=== PATIENT | female | born 1935 | race Caucasian/White ===

== ENCOUNTER 2016-10-12 08:36 | Emergency (ER) | payer MEDICARE, OTHER ==
[2016-10-12] MEDS ORDERED: Acetaminophen/Codeine 30-300mg Tablet ONE (09:32)
--- NOTE | 2016-10-12 20:41 | CT ---
PRELIMINARY REPORT/[facility]/EMERGENCY AFTER HOURS PROCEDURE: EXAM: CT Maxillofacial Without Intravenous Contrast CLINICAL HISTORY: 81 years old, female; Injury or trauma; Fall; Initial encounter; Blunt trauma (contusions or hematom as); Orbit/periorbital; Right; Injury date: 10-10-16; Injury details: Fell/ contusion under r eye TECHNIQUE: Axial computed tomography images of the face without intravenous contrast. This CT exam was performe d using one or more of the following dose reduction techniques: automated exposure control, adjustme nt of the mA and/or kV according to patient size, and/or use of iterative reconstruction technique. Coronal and sagittal reformatted images were created and reviewed. EXAM DATE/TIME: 10/12/2016 9:05 AM COMPARISON: No relevant prior studies available. FINDINGS: Bones/joints: No acute fracture. Soft tissues: Mild soft tissue swelling over the right face. Orbits: Unremarkable. Sinuses: Air bubbles in the sphenoid sinus suggesting acute sinus disease. Mild mucoperiosteal thick ening of the paranasal sinuses. Right nasoantral window. IMPRESSION: 1. Mild soft tissue swelling over the right face. No fractures identified. 2. Air bubbles in the sphenoid sinus suggesting acute sinus disease. Thank you for allowing us to participate in the care of your patient. Dictated and Authenticated by: Nathaly Alarcon MD 10/12/2016 10:30 AM Central Time ([place] \T\ [place]) FINAL REPORT CT OF THE FACIAL BONES: Date: 10-12-16 Technique: Spiral CT of the face was performed for evaluation following trauma. Axial slices were ac quired and then coronal and sagittal reconstructions were done. FINDINGS: No acute facial fractures were seen. The orbital rims, maxilla, zygomatic arches and mandible all ap peared intact. There are no airfluid levels in the paranasal sinuses. There is opacification of one of the right posterior ethmoid air cells and in the sphenoid sinus there is a suggestion of a few ti ny areas of mucosal thickening, possibly even with some air bubbles in them. This raises the questio n of acute sinus disease. There is no sign of a basilar skull fracture. The retroorbital areas were unremarkable. Some mild soft tissue swelling is seen over the right cheek. The underlying bone appea rs intact. IMPRESSION: 1. No acute traumatic bony findings. 2. Evidence of sinus disease as described. 3. Soft tissue swelling, right cheek, as noted. RERORT IN AGREEMENT WITH PRELIMINARY READING BY CAREY. POS: HOME
--- NOTE | 2016-10-12 20:43 | RAD ---
RIGHT SHOULDER THREE VIEWS: Date: 10-12-16 Comparison: 11-29-14 chest film which shows the right shoulder. FINDINGS: There is a fracture through at least the greater tubercle. The humeral head seems subluxed anteriorl y very slightly but probably not frankly dislocated. The fracture is somewhat complex therefore I fuchs spect that there are additional fracture lines present, probably in the vicinity of the humeral neck . Further studies will be needed to sufficiently show and categorize them. The AC joint is not wide. The visible adjacent ribs appeared intact. IMPRESSION: Fractures around the humeral head and greater tubercle as described. POS: HOME
--- NOTE | 2016-10-12 20:49 | CT ---
PRELIMINARY REPORT/[facility]/EMERGENCY AFTER HOURS PROCEDURE: EXAM: CT Head Without Intravenous Contrast CLINICAL HISTORY: 81 years old, female; Injury or trauma; Fall; Initial encounter; Concussion / head injury; Injury da te: 10-10-16; Injury details: Fell/ contusion under r eye TECHNIQUE: Axial computed tomography images of the head/brain without intravenous contrast. This CT exam was pe rformed using one or more of the following dose reduction techniques: automated exposure control, ad justment of the mA and/or kV according to patient size, and/or use of iterative reconstruction technique. EXAM DATE/TIME: 10/12/2016 8:59 AM COMPARISON: No relevant prior studies available. FINDINGS: Brain: Prominent sulci. Patchy hypodensity of the cerebral white matter which are nonspecific but li maurice secondary to microangiopathic changes. No hemorrhage. No edema. Ventricles: The ventricles are prominent secondary to diffuse volume loss/atrophy. Bones/joints: Unremarkable. No acute fracture. Soft tissues: Unremarkable. Sinuses: Mild mucoperiosteal thickening of the paranasal sinuses. Mastoid air cells: Unremarkable as visualized. No mastoid effusion. IMPRESSION: Chronic age related changes but no evidence of acute intracranial pathology. Remainder of findings as described above. Thank you for allowing us to participate in the care of your patient. Dictated and Authenticated by: Nathaly Alarcon MD 10/12/2016 10:08 AM Central Time ([place] \T\ [place]) FINAL REPORT CT BRAIN WITHOUT CONTRAST: Date: 10-12-16 Technique: A noncontrast CT was done following trauma. FINDINGS: The ventricles are normal in size with no shift. No intracranial bleeding or extraaxial hematoma was seen. There is no sign of mass, edema, or stroke. There is some minimal hyperlucency in the deep wh ite matter, typical of chronic ischemic changes. The visible paranasal sinuses are clear, although t here is a little mucosal thickening in the ethmoid sinuses, especially on the right. The mastoid air cells are clear. IMPRESSION: No acute intracranial findings. Report in agreement with preliminary reading by CAREY. POS: HOME
== END 2016-10-12 10:17 | disposition home or self-care (01) ==
LOC: BURERS 08:36
DX: S42.251A Displaced fracture of greater tuberosity of right humerus, initial encounter for closed fracture (principal); S05.11XA Contusion of eyeball and orbital tissues, right eye, initial encounter; K21.9 Gastro-esophageal reflux disease without esophagitis; E78.5 Hyperlipidemia, unspecified; I10 Essential (primary) hypertension; Z79.82 Long term (current) use of aspirin; Z79.899 Other long term (current) drug therapy; W01.198A Fall on same level from slipping, tripping and stumbling with subsequent striking against other object, initial encounter
CPT/HCPCS: 70450; 70486

== ENCOUNTER 2016-12-22 13:14 | Outpatient (CLI) | payer MEDICARE, OTHER ==
[2016-12-22 13:46] LABS: ALT (SGPT) 20 U/L (8-55); AST (SGOT) 23 U/L (5-34); Albumin 4.1 g/dL (3.4-4.8); Alkaline Phosphatase 51 U/L (40-150); Anion Gap 14 mmol/L (10-20); BUN (Urea Nitrogen) 34 mg/dL (9.8-20.1); Bilirubin, Total 0.6 mg/dL (0.2-1.2); Calc. Creatinine Clearance 0 mL/min (70-130); Calcium 9.4 mg/dL (7.8-10.44); Carbon Dioxide 25 mmol/L (23-31); Cardiac Risk 2.9 (Less than 4.5); Chloride 108 mmol/L (98-107); Cholesterol 121 mg/dl (< 200 Desired); Estimated GFR-MDRD 39; Globulin 2.9 g/dL (2.4-3.5); Glucose 96 mg/dL (83-110); HDL Cholesterol 42 mg/dL (>60 Neg Risk); LDL Cholesterol, Calculated 65 mg/dL; Potassium 4.3 mmol/L (3.5-5.1); Sodium 143 mmol/L (136-145); Triglycerides 70 mg/dL (Less than 150)
[2016-12-22 13:49] LABS: #Basophils 0.1 thou/uL (0.0-0.2); #Eosinphils 0.5 thou/uL (0.0-0.7); #Lymphocytes 2.1 thou/uL (1.20-3.40); #Monocytes 0.6 thou/uL (0.11-0.59); #Neutrophils 4.9 thou/uL (1.40-6.50); %Basophils 0.8 % (0.0-1.0); %Eosinophils 6.3 % (0.0-10.0); %Lymphocytes 25.7 % (21.0-51.0); %Monocytes 7.3 % (0.0-10.0); %Neutrophils 59.9 % (42.0-75.0); Hemoglobin 11.6 g/dL (12.0-16.0); Mean Corpuscular HGB CONC 32.5 g/dL (32.0-36.0); Mean Corpuscular Hemoglobin 29.9 pg (27.0-31.0); Mean Corpuscular Volume 92.2 fl (81.0-99.0); Mean Platelet Volume 5.6 fL (7.4-10.4); Platelet Count 225 thou/uL (130-400); RBC Distribution Width 12.7 % (11.5-14.5); Red Blood Cell (RBC) Count 3.89 mill/uL (4.20-5.40); White Blood Cell (WBC) Count 8.1 thou/uL (4.8-10.8)
== END 2016-12-22 13:15 | disposition home or self-care (01) ==
LOC: HPCALD 13:14
PROVIDERS: ATTEND Family Medicine
DX: E78.5 Hyperlipidemia, unspecified (principal); I10 Essential (primary) hypertension
CPT/HCPCS: 36415; 80053; 80061; 85025

== ENCOUNTER 2016-12-24 14:46 | Outpatient (CLI) | payer MEDICARE, OTHER ==
--- NOTE | 2016-12-24 20:44 | RAD ---
THORACOLUMBAR SPINE TWO VIEWS: 12/24/16 Comparison is made with the prior study of 04/18/11. A T9 compression fracture is present as before, but it has lost more height anteriorly. The T10 comp ression is about the same as before. There is a mild compression of T11 and T12. The L1 compression seen previously has compressed slightly more. The L3 compression is about the same. Anterolisthesis of L4 on L5 is similar as well. There is some mild scoliosis of the thoracolumbar spine. IMPRESSION: 1. Increased compressions of particularly T9 and L1 since the prior exam in 2011. 2. Mild compressions of T10, T11, and T12. 3. Other findings as listed above. COMMENT: Overall the findings are similar but those vertebrae that were significantly compressed before are m uch more so. POS: HOME
== END 2016-12-24 14:47 | disposition home or self-care (01) ==
LOC: BURRAD 14:46
PROVIDERS: ATTEND Family Medicine
DX: M54.5 Low back pain (principal)
CPT/HCPCS: 72080

== ENCOUNTER 2019-02-23 01:09 | Emergency (ER) | payer MEDICARE, OTHER ==
[2019-02-23] MEDS ORDERED: Ondansetron ODT 4 MG TAB ONE (01:44)
== END 2019-02-23 02:10 | disposition home or self-care (01) ==
LOC: BURERS 01:09
DX: I83.892 Varicose veins of left lower extremity with other complications (principal); I10 Essential (primary) hypertension; I48.91 Unspecified atrial fibrillation; E78.5 Hyperlipidemia, unspecified; I25.10 Atherosclerotic heart disease of native coronary artery without angina pectoris; Z79.899 Other long term (current) drug therapy
CPT/HCPCS: 99283; Q0162

== ENCOUNTER 2019-02-28 12:24 | Outpatient (CLI) | payer MEDICARE, OTHER ==
--- NOTE | 2019-02-28 18:01 | RAD ---
RIGHT HIP TWO VIEWS: 02/28/2019 FINDINGS: No fracture, dislocation or joint space narrowing is seen. Degenerative changes are present but very minimal. The adjacent pubic ring appears intact. IMPRESSION: No acute bony findings. POS: HOME
--- NOTE | 2019-02-28 18:06 | RAD ---
LUMBAR SPINE THREE VIEWS: 02/28/2019 COMPARISON: Prior study of 12/24/2016. FINDINGS: There have been a few changes in the interval. Prominent anterior compression fractures of the T9 and L1 vertebral bodies are present, as before. Th e degree of compression is about the same. Lesser compressions of T6 as well as T11 and T12 are nearl y the same also. There is some slight downsloping of the superior endplate of L2 and scalloping of th e superior endplate of L3. Both were present to at least some degree before. Grade 1 spondylolisthesi s of L4 on L5 is present and unchanged. Also noted is a mild degree of an S-shaped thoracolumbar scoliosis. The SI joints show very slight sc lerotic change but were generally unremarkable for age. IMPRESSION: Osteoporosis with prominent anterior compressions of T9 and L1, just as before. Other findings listed above. Overall, any changes over the last two or so years have been slight. POS: HOME
== END 2019-02-28 12:25 | disposition home or self-care (01) ==
LOC: BURRAD 12:24
PROVIDERS: ATTEND Family Medicine
DX: M25.551 Pain in right hip (principal); M54.5 Low back pain; M81.0 Age-related osteoporosis without current pathological fracture
CPT/HCPCS: 72100

== ENCOUNTER 2019-11-07 08:49 | Emergency (ER) | payer MEDICARE, OTHER ==
[2019-11-07 09:48] LABS: #Basophils 0.1 thou/uL (0.0-0.2); #Lymphocytes 0.5 thou/uL (1.20-3.40); #Monocytes 0.6 thou/uL (0.11-0.59); #Neutrophils 9.8 thou/uL (1.40-6.50); %Basophils 0.5 % (0.0-1.0); %Eosinophils 0.1 % (0.0-10.0); %Lymphocytes 4.4 % (21.0-51.0); %Monocytes 5.7 % (0.0-10.0); %Neutrophils 89.2 % (42.0-75.0); Hemoglobin 8.6 g/dL (12.0-16.0); Mean Corpuscular HGB CONC 30.4 g/dL (32.0-36.0); Mean Corpuscular Hemoglobin 26.8 pg (27.0-31.0); Mean Corpuscular Volume 88.1 fL (78.0-98.0); Mean Platelet Volume 6.1 fL (7.4-10.4); Platelet Count 177 thou/uL (130-400); RBC Distribution Width 15.4 % (11.5-14.5); Red Blood Cell (RBC) Count 3.21 mill/uL (4.20-5.40)
[2019-11-07 09:56] LABS: ALT (SGPT) 32 U/L (8-55); AST (SGOT) 33 U/L (5-34); Albumin 3.9 g/dL (3.4-4.8); Alkaline Phosphatase 40 U/L (40-110); Anion Gap 13 mmol/L (10-20); BUN (Urea Nitrogen) 22 mg/dL (9.8-20.1); Calc. Creatinine Clearance 0 mL/min (70-130); Calcium 9.4 mg/dL (7.8-10.44); Carbon Dioxide 26 mmol/L (23-31); Chloride 105 mmol/L (98-107); Estimated GFR-MDRD 50; Globulin 3.4 g/dL (2.4-3.5); Glucose 138 mg/dL (83-110); Potassium 4.3 mmol/L (3.5-5.1); Protein, Total 7.3 g/dL (6.0-8.3); Sodium 140 mmol/L (136-145)
[2019-11-07 10:15] LABS: CKMB 5.3 ng/mL (0-6.6)
[2019-11-07 11:31] LABS: INR-International Normal Ratio 1.4; PTT 34.3 sec (22.9-36.1); Prothrombin Time 17.5 sec (12.0-14.7)
[2019-11-07] MEDS ORDERED: Digoxin 0.5 MG/2 ML AMP ONE (11:35)
[2019-11-07] MEDS ORDERED: Fentanyl 100 MCG/2 ML VIAL ONE (12:29)
[2019-11-07] MEDS ORDERED: Furosemide 40 MG/4 ML VIAL ONE (12:45)
--- NOTE | 2019-11-07 20:54 | RAD ---
PORTABLE CHEST: Date: 11-07-2019 An AP portable film at 1027 is compared with an 11-29-14 study. FINDINGS: Moderate cardiomegaly is about the same as before. There is no widening or shift of the mediastinum. There is no vascular congestion, edema, or pleural effusion. An old healed fracture of the proximal r ight humerus is noted, a known finding in this patent. The lungs are clear with no acute infiltrate s een. Rib fractures would be usually missed in this patient. There is a question if there might be a h airline fracture of the right 8th rib posterolaterally. The finding is equivocal and should be correl ated with the clinical exam. Faint calcification is seen in the aortic arch. IMPRESSION: 1. Moderate cardiomegaly without congestive findings. Arteriosclerosis. 2. Clear lungs. 3. Equivocal fracture of the right 8th rib posterolaterally. This finding is very marginal. Correlate with any pain in this location. Code T POS: HOME
--- NOTE | 2019-11-07 21:01 | RAD ---
SACRUM AND COCCYX: Three views are submitted and compared with an 02-28-19 lumbar spine film. FINDINGS: The patient's osteoporosis could easily mask subtle bony injuries. Nevertheless, no acute fractures were appreciated. What I can see of the arcuate lines of the sacrum appeared intact. The SI joints were symmetrical and appeared normal. The pubic symphysis shows no wid ening or off-set and the adjacent pubic rings appeared intact. There is a mild to moderate compressio n of the L4 vertebral body with slight anterolisthesis of the vertebra on L5. This is not a new findi ng and the appearance is quite similar to an -- lumbar spine film. The coccyx appears to be nor brandi located on the lateral view. IMPRESSION: Slightly low sensitivity study showing no definite acute findings. L4 compression is old. POS: HOME
== END 2019-11-07 13:07 | disposition short-term general hospital (02) ==
LOC: BURERS 08:49
DX: M53.3 Sacrococcygeal disorders, not elsewhere classified (principal); I11.0 Hypertensive heart disease with heart failure; I50.9 Heart failure, unspecified; I48.91 Unspecified atrial fibrillation; J44.1 Chronic obstructive pulmonary disease with (acute) exacerbation; E78.5 Hyperlipidemia, unspecified; E78.00 Pure hypercholesterolemia, unspecified; Z79.82 Long term (current) use of aspirin; Z79.51 Long term (current) use of inhaled steroids; Z79.899 Other long term (current) drug therapy
CPT/HCPCS: 71045; 72220; 80053; 82553; 83880; 84484; 85025; 85610; 85730; 93005; 96374; 96375; J1160; J1940; J3010; J7620

== ENCOUNTER 2021-07-16 15:36 | Emergency (ER) | payer MEDICARE, OTHER ==
[2021-07-16 16:30] LABS: #Eosinphils 0.1 thou/uL (0.0-0.7); #Lymphocytes 0.3 thou/uL (1.20-3.40); #Monocytes 0.2 thou/uL (0.11-0.59); #Neutrophils 7.8 thou/uL (1.40-6.50); %Basophils 0.3 % (0.0-1.0); %Eosinophils 0.7 % (0.0-10.0); %Lymphocytes 3.2 % (21.0-51.0); %Monocytes 2.1 % (0.0-10.0); %Neutrophils 93.6 % (42.0-75.0); Hemoglobin 12.4 g/dL (12.0-16.0); Mean Corpuscular HGB CONC 33.7 g/dL (32.0-36.0); Mean Corpuscular Hemoglobin 32.1 pg (27.0-31.0); Mean Corpuscular Volume 95.2 fL (78.0-98.0); Mean Platelet Volume 6.2 fL (7.4-10.4); Platelet Count 278 thou/uL (130-400); RBC Distribution Width 13.6 % (11.5-14.5); Red Blood Cell (RBC) Count 3.87 mill/uL (4.20-5.40); White Blood Cell (WBC) Count 8.3 thou/uL (4.8-10.8)
[2021-07-16 16:41] LABS: Base Excess-Venous 3.3 mmol/L (-2.0 to 3.0); Bicarbonate (HCO3v) 28.6 mmol/L (22.0-28.0); CO2 Tension (PvCO2) 45.3 mmHg (42.0-51.0); Calcium, Ionized 1.16 mmol/L (1.15-1.33); Chloride 97 mmol/L (98-107); Sodium 138 mmol/L (138-145); vO2 Saturation-calc 67.8 % (60.0-85.0)
[2021-07-16 16:47] LABS: ALT (SGPT) 28 U/L (8-55); AST (SGOT) 23 U/L (5-34); Albumin 4.1 g/dL (3.4-4.8); Alkaline Phosphatase 35 U/L (40-110); Anion Gap 15 mmol/L (10-20); BUN (Urea Nitrogen) 38 mg/dL (9.8-20.1); Bilirubin, Total 0.9 mg/dL (0.2-1.2); Calc. Creatinine Clearance 0 mL/min (70-130); Calcium 9.5 mg/dL (7.8-10.44); Carbon Dioxide 31 mmol/L (23-31); Chloride 97 mmol/L (98-107); Globulin 4.3 g/dL (2.4-3.5); Glucose 96 mg/dL (83-110); Protein, Total 8.4 g/dL (5.8-8.1); Sodium 139 mmol/L (136-145)
[2021-07-16 17:04] LABS: CKMB 2.5 ng/mL (0-6.6)
[2021-07-16] MEDS ORDERED: Hyoscyamine Sulfate SL 0.125 mg Tablet ONE (17:12)
[2021-07-16] MEDS ORDERED: Ondansetron PF 4 MG/2 ML Vial ONE (17:12)
[2021-07-16] MEDS ORDERED: Albuterol Sulfate 1.25 MG/3 ML NEB ONE (17:12)
[2021-07-16] MEDS ORDERED: methylPREDNISolone Sod Succ/PF 125 MG/2 ML VIAL ONE (17:12)
[2021-07-16] MEDS ORDERED: Albuterol Sulfate 2.5 mg/0.5 ml Neb ONE (17:13)
[2021-07-16 18:45] LABS: SARS-CoV-2 NAA Rapid Test Not Detected (NotDetected)
== END 2021-07-16 18:30 | disposition critical access hospital (66) ==
LOC: BURERS 15:36
DX: J44.1 Chronic obstructive pulmonary disease with (acute) exacerbation (principal); I48.91 Unspecified atrial fibrillation; I13.0 Hypertensive heart and chronic kidney disease with heart failure and stage 1 through stage 4 chronic kidney disease, or unspecified chronic kidney disease; I50.9 Heart failure, unspecified; N28.9 Disorder of kidney and ureter, unspecified; R79.1 Abnormal coagulation profile; R19.7 Diarrhea, unspecified; R11.2 Nausea with vomiting, unspecified; E78.5 Hyperlipidemia, unspecified; E78.00 Pure hypercholesterolemia, unspecified; I45.10 Unspecified right bundle-branch block; I49.9 Cardiac arrhythmia, unspecified; Z20.822 Contact with and (suspected) exposure to COVID-19
CPT/HCPCS: 0240U; 71045; 80053; 82330; 82435; 82553; 82803; 83880; 84132; 84295; 84484; 85014; 85025; 85379; 93005; 94640 ×2; 94644; 94760; 96374; 96375; J2405; J2930; J7611; J7620

== ENCOUNTER 2021-08-23 09:20 | Outpatient (CLI) | payer MEDICARE, OTHER | END 2021-08-23 09:21 | disposition home or self-care (01) | LOC: BURRAD 09:20 | PROVIDERS: ATTEND Internal Medicine Cardiovascular Disease | DX: I50.22 Chronic systolic (congestive) heart failure (principal) | CPT/HCPCS: 71046 ==

== ENCOUNTER 2022-02-02 11:44 | Emergency (ER) | payer MEDICARE, OTHER ==
[2022-02-02 12:19] LABS: #Basophils 0.1 thou/uL (0.0-0.2); #Eosinphils 0.2 thou/uL (0.0-0.7); #Lymphocytes 1.2 thou/uL (1.20-3.40); #Monocytes 0.5 thou/uL (0.11-0.59); #Neutrophils 4.2 thou/uL (1.40-6.50); %Basophils 1.1 % (0.0-1.0); %Eosinophils 3.9 % (0.0-10.0); %Lymphocytes 19.3 % (21.0-51.0); %Monocytes 8.4 % (0.0-10.0); %Neutrophils 67.4 % (42.0-75.0); Hemoglobin 12.8 g/dL (12.0-16.0); Mean Corpuscular HGB CONC 33.9 g/dL (32.0-36.0); Mean Corpuscular Hemoglobin 31.9 pg (27.0-31.0); Mean Corpuscular Volume 94.2 fl (78.0-98.0); Mean Platelet Volume 6.7 fL (7.4-10.4); Platelet Count 195 thou/uL (130-400); RBC Distribution Width 12.5 % (11.5-14.5); Red Blood Cell (RBC) Count 4.01 mill/uL (4.20-5.40); White Blood Cell (WBC) Count 6.3 thou/uL (4.8-10.8)
[2022-02-02] MEDS ORDERED: Cefepime 2 GM VIAL ONE (12:25)
[2022-02-02] MEDS ORDERED: Sodium Chloride 0.9% 100 ML ONE (12:26)
[2022-02-02 12:38] LABS: ALT (SGPT) 17 U/L (8-55); AST (SGOT) 27 U/L (5-34); Albumin 4.2 g/dL (3.4-4.8); Alkaline Phosphatase 39 U/L (40-110); Anion Gap 17 mmol/L (10-20); BUN (Urea Nitrogen) 28 mg/dL (9.8-20.1); Bilirubin, Total 0.6 mg/dL (0.2-1.2); Calc. Creatinine Clearance 0 mL/min (70-130); Calcium 9.7 mg/dL (7.8-10.44); Carbon Dioxide 25 mmol/L (23-31); Chloride 101 mmol/L (98-107); Estimated GFR 53; Glucose 108 mg/dL (83-110); Potassium 4.3 mmol/L (3.5-5.1); Protein, Total 8.2 g/dL (5.8-8.1); Sodium 139 mmol/L (136-145)
== END 2022-02-02 17:33 | disposition short-term general hospital (02) ==
LOC: BURERS 11:44
DX: T82.7XXA Infection and inflammatory reaction due to other cardiac and vascular devices, implants and grafts, initial encounter (principal); E78.00 Pure hypercholesterolemia, unspecified; J44.9 Chronic obstructive pulmonary disease, unspecified; I10 Essential (primary) hypertension
CPT/HCPCS: 36415; 71045; 80053; 83605; 84484; 85025; 87040; 87070; 87149; 87205; 93005; 96365; 96366; 96367; J0692; J3370; J3490

== ENCOUNTER 2022-08-18 16:59 | Outpatient (CLI) | payer MEDICARE, OTHER | END 2022-08-18 17:00 | disposition home or self-care (01) | LOC: BURRAD 16:59 → BURERS 16:59 → BURRAD 17:00 → EDSTATUS 17:18 | PROVIDERS: ATTEND Family Medicine | DX: R05.9 Cough, unspecified (principal); J18.9 Pneumonia, unspecified organism | CPT/HCPCS: 71046 ==

== ENCOUNTER 2022-08-25 15:22 | Outpatient (CLI) | payer MEDICARE, OTHER | END 2022-08-25 15:23 | disposition home or self-care (01) | LOC: BURRAD 15:22 | PROVIDERS: ATTEND Family Medicine | DX: J16.8 Pneumonia due to other specified infectious organisms (principal); J98.4 Other disorders of lung | CPT/HCPCS: 71046 ==

== ENCOUNTER 2023-03-09 14:24 | Outpatient (CLI) | payer MEDICARE, OTHER | END 2023-03-09 14:25 | disposition home or self-care (01) | LOC: BURRAD 14:24 | PROVIDERS: ATTEND Family Medicine | DX: J44.9 Chronic obstructive pulmonary disease, unspecified (principal); J30.9 Allergic rhinitis, unspecified | CPT/HCPCS: 70220; 71046 ==

== ENCOUNTER 2023-12-29 10:09 | Outpatient (CLI) | payer MEDICARE, OTHER | END 2023-12-29 10:10 | disposition home or self-care (01) | LOC: BURRAD 10:09 | PROVIDERS: ATTEND Internal Medicine | DX: J44.9 Chronic obstructive pulmonary disease, unspecified (principal) | CPT/HCPCS: 71046 ==